=== PATIENT | female | born 1960 | race Two or more races ===

== ENCOUNTER 2023-05-16 11:12 | Emergency (ER) | payer MEDICARE ==
[~2023-05-16] VITALS: Ht 160 cm; Wt 136.1 kg
[2023-05-16 11:33] VITALS: BP 172/90; TEMP 98.3; O2SAT 97
== END 2023-05-16 12:51 | disposition home or self-care (01) ==
LOC: ER 11:27
DX: Z45.2 Encounter for adjustment and management of vascular access device (principal); I10 Essential (primary) hypertension; E78.00 Pure hypercholesterolemia, unspecified